=== PATIENT | female | born 1995 | race Two or more races ===

== ENCOUNTER 2019-04-30 13:11 | Emergency (ER) | payer SELFPAY ==
[~2019-04-30] VITALS: Ht 177.8 cm; Wt 81.2 kg
--- NOTE | 2019-04-30 13:45 | NUR ---
PT CAME IN CO OF BLADDER PAIN. HAS HX OF UTI AND KIDNEY FAILURE. WANTS TO MAKE SURE SHE DOESNT HAVE A UTI. URINE SENT.
--- NOTE | 2019-04-30 14:21 | NUR ---
PT RESTING IN [facility]. CALL LIGHT WITHIN REACH. NO NEEDS AT THIS TIME
[2019-04-30 14:50] LABS: HCG UR SG 1.009 (1.003-1.030); MICROSCOPIC AUTO
[2019-04-30 14:52] LABS: CULTURE INDICATED? YES
[2019-04-30 15:00] VITALS: BP 114/75
== END 2019-04-30 15:12 | disposition home or self-care (01) ==
LOC: ED 14:29
DX: N30.00 Acute cystitis without hematuria (principal); J98.01 Acute bronchospasm; R51 Headache; N18.9 Chronic kidney disease, unspecified
CPT/HCPCS: 81001; 81025; 87086; 99283